=== PATIENT | male | born 1985 | race Caucasian/White ===

== ENCOUNTER → 2020-05-10 15:58 | Outpatient (CLI) | payer BC, SELFPAY ==
--- NOTE | 2020-05-10 | DI.RAD.S_ITS ---
PROCEDURE: XR HAND RT MIN 3V INDICATIONS: RIGHT HAND PAIN TECHNIQUE: 3 views of the hand(s) acquired. COMPARISON: None. FINDINGS: Bones: No fractures or dislocations. Carpal bones are normally aligned. No suspicious bony lesions. Soft tissues: No suspicious soft tissue calcifications. IMPRESSION: No trauma found, source of pain is not seen. Dictated by: Renard Murillo M.D. on 05/10/2020 at 17:05 Approved by: Renard Murillo M.D. on 05/10/2020 at 17:06
== END ==
PROVIDERS: PCP Family Medicine; Referring Provider Family Medicine; Visit Provider Family Medicine
DX: M79.641 Pain in right hand (principal)
CPT/HCPCS: 73130

== ENCOUNTER → 2024-05-26 15:46 | Outpatient (CLI) | payer BC, SELFPAY ==
--- NOTE | 2024-05-26 15:49 | DI.RAD.S_ITS ---
PROCEDURE: XR FOOT RT MIN 3V INDICATIONS: FOOT PAIN TECHNIQUE: 3 views of the foot were acquired. COMPARISON: [facility] [place], CR, XR FOOT 3 VIEWS WEIGHT BEARING RIGHT, 08/12/2018, 15:01. FINDINGS: Bones: Slight lucency seen on one view of the distal aspect of the 1st proximal phalanx. No suspicious bony lesions. Soft tissues: No tibiotalar joint effusion. Achilles tendon appears normal. IMPRESSION: Slight nondisplaced lucency seen on one view at the distal 1st phalanx. This may be artifactual. Recommend correlation point tenderness and correlation to any trauma for fracture concern. Dictated by: Mary Jane Álvarez M.D. on 05/26/2024 at 21:47 Approved by: Mary Jane Álvarez M.D. on 05/26/2024 at 21:48
== END ==
LOC: RAD 15:47
PROVIDERS: PCP Family Medicine; Referring Provider Family Medicine; Visit Provider Family Medicine
DX: M79.671 Pain in right foot (principal)
CPT/HCPCS: 73630

== ENCOUNTER → 2024-08-03 07:57 | Outpatient (CLI) | payer BC, SELFPAY ==
--- NOTE | 2024-08-03 08:03 | DI.MRI.S_ITS ---
PROCEDURE: MR FOOT RT WO CON INDICATIONS: Stress fracture, right foot, subsequent encounter for fractu TECHNIQUE: Multiphasic, multisequence MRI of the forefoot was performed, without intravenous contrast administration. COMPARISON: [facility], CR, XR FOOT 3+ VIEWS RIGHT, 07/27/2024, 16:55. [facility], CR, XR FOOT 3+ VIEWS RIGHT, 06/11/2024, 15:53. [facility], CR, XR FOOT RT MIN 3V, 05/26/2024, 16:04. [facility], MR, MR FOOT RIGHT WITHOUT CONTRAST, 08/05/2018, 9:43. FINDINGS: Image quality: Excellent. Bones and joints: Mild osseous edema at the tip of the 5th metatarsal base apophysis without discrete fracture line. No metatarsal stress fractures. No significant finding is seen corresponding to the prior 1st distal phalangeal finding on radiographs from 06/11/2024, likely artifactual on the prior exam. Small chronic cystic changes versus chronic osseous erosion at the lateral 5th metatarsal head. Soft tissues: Trace adventitial bursal thickening plantar to the 5th metatarsal head. Soft tissue edema is seen adjacent to the 5th metatarsal base. Suspected partial tearing at the peroneus brevis tendon insertion. Low-grade abductor digiti minimi muscle strain or focal fasciitis could produce similar findings. The remaining foot musculature is normal in signal intensity and bulk. Visualized flexor and extensor tendons appear intact, without tenosynovitis. The distal insertion of the peroneus longus tendon appears intact. The principal Lisfranc ligament appears intact. Sagittal images demonstrate no evidence for plantar plate tears. IMPRESSION: 1. Suspected partial intrasubstance tearing of the peroneus brevis tendon at its insertion onto the 5th metatarsal base. Mild adjacent osseous edema is seen without a fracture line identified. Surrounding soft tissue edema is present. 2. Adjacent abductor digiti minimi muscle strain or focal plantar fasciitis adjacent to the 5th metatarsal base are not excluded. 3. First distal phalanx is intact. 4. Mild adventitial bursal thickening or bursitis plantar to the 5th metatarsal head. 1. Approved by: Hernando Martell M.D. on 08/04/2024 at 10:02
== END ==
PROVIDERS: PCP Family Medicine; Referring Provider Physician Assistant Surgical; Visit Provider Physician Assistant Surgical
DX: M84.374D Stress fracture, right foot, subsequent encounter for fracture with routine healing (principal); R60.0 Localized edema; X58.XXXA Exposure to other specified factors, initial encounter
CPT/HCPCS: 73718

== ENCOUNTER → 2024-09-16 15:58 | Outpatient (CLI) | payer BC, SELFPAY ==
--- NOTE | 2024-09-16 16:42 | DI.MRI.S_ITS ---
PROCEDURE: MR ANKLE RT WO CON INDICATIONS: TENDINITIS OF RT PERONEUS BREVIS TENDON TECHNIQUE: Noncontrast sagittal T1 spin echo and T2 fast spin echo with fat saturation, axial proton density fast spin echo and T2 fast spin echo with fat saturation, coronal T1 spin echo and T2 fast spin echo with fat saturation through the ankle/hindfoot. COMPARISON: None. FINDINGS: Image quality: Excellent. Bones and joints: No bone marrow contusions or fractures. No hindfoot coalitions. No osteochondral injuries of the talar dome. Small tibiotalar joint effusion, no loose bodies. Medial structures: The posterior tibialis tendon is mildly thickened with small amount of fluid distending tendon sheath at the level of mid to distal talus and talonavicular joint. The flexor digitorum longus, and flexor hallucis longus tendons are intact. The posterior tibial neurovascular bundle appears normal within the tarsal tunnel, without extrinsic mass effect. The deltoid ligament and spring ligament are intact. Lateral structures: The anterior talofibular ligament is mildly thickened. The calcaneofibular, and posterior talofibular ligaments appear intact. More superiorly, the anterior and posterior tibiofibular ligaments appear intact, as is the intermalleolar ligament. The tibiofibular syndesmosis is normal in width at 2 mm or less. The peroneus longus and brevis tendons are mildly thickened with small amount of fluid distending tendon sheath at the level of mid to distal calcaneus extending to the level of cuboid. No gross signal abnormality is seen within the sinus tarsi. Visualized sinus tarsi components are grossly intact. Anterior structures: The tibialis anterior, extensor hallucis longus, and extensor digitorum longus tendons appear intact. The dorsal talonavicular ligament appears intact. Posterior and plantar structures: Mild distal Achilles tendinosis at its posterior calcaneal insertion is seen. Mildly thickened medial band of plantar fascia near its plantar calcaneal insertion is seen. No abductor digiti quinti muscle atrophy to suggest Avila neuropathy. IMPRESSION: 1. No marrow edema. No fracture or dislocation. No osteochondral injuries of talar dome. Small joint effusion, no loose bodies. 2. Low-grade tenosynovitis involving posterior tibialis tendon at the level of mid to distal talus and talonavicular joint. 3. Low-grade tenosynovitis involving peroneus tendons at the level of mid to distal calcaneus extending to the level of cuboid. 4. Low-grade ATFL sprain. 5. Mild distal Achilles tendinosis. No Achilles tendon rupture. Mildly thickened medial band of plantar fascia suggestive of low-grade plantar fasciitis. Dictated by: Vlad Cleary M.D. on 09/17/2024 at 11:48 Approved by: Vlad Cleary M.D. on 09/17/2024 at 11:51
== END ==
PROVIDERS: PCP Family Medicine; Referring Provider Orthopaedic Surgery Foot and Ankle Surgery; Visit Provider Orthopaedic Surgery Foot and Ankle Surgery
DX: M76.71 Peroneal tendinitis, right leg (principal); S93.491A Sprain of other ligament of right ankle, initial encounter; M25.471 Effusion, right ankle; M65.971 Unspecified synovitis and tenosynovitis, right ankle and foot
CPT/HCPCS: 73721